=== PATIENT | female | born 2000 | race Caucasian/White ===

== ENCOUNTER 2025-01-14 15:50 | Outpatient (OUT) | payer OTHER, SELFPAY ==
[2025-01-14 16:43] LABS: Hematocrit 42.6 % (36.0-48.0); Hemoglobin 14.6 g/dL (12.0-16.0); Immature Granulocytes Abs Auto 0.01 10^3/uL (0.00-0.03); Immature Granulocytes Pct Auto 0.1 % (0.0-0.5); Lymphocytes Absolute Auto 2.1 10^3/uL (1.2-3.8); Mean Corpuscular HGB Conc 34.3 g/dL (29.9-35.2); Mean Corpuscular Hemoglobin 31.9 pg (26.7-34.0); Mean Corpuscular Volume 93.0 fL (81.0-99.0); Platelet Count 264 10^3/uL (150-450); Red Blood Count 4.58 10^6/uL (4.20-5.40); White Blood Count 7.0 10^3/uL (4.0-11.0)
[2025-01-14 16:53] LABS: Alanine Aminotransferase 25 U/L (14-59); Albumin Globulin Ratio 1.2; Albumin Level 4.1 g/dL (3.4-5.0); Alkaline Phosphatase 55 U/L (46-116); Anion Gap 15.4; Aspartate Amino Transferase 23 U/L (15-37); Blood Urea Nitrogen 22.0 mg/dL (7.0-18.0); Calcium 9.4 mg/dL (8.5-10.1); Carbon Dioxide 27.9 mmol/L (21.0-32.0); Chloride 103 mmol/L (98-107); Cholesterol 179 mg/dL (<=200); Estimated GFR (African America >60 (>=60 mL/min/1.73m^2); Estimated GFR (Non-African Ame >60 (>=60 mL/min/1.73m^2); Globulin 3.3 g/dL; Glucose 98 mg/dL (74-106); HDL Cholesterol 73 mg/dL (40-60); Potassium 4.3 mmol/L (3.5-5.1); Sodium 142 mmol/L (136-145); Total Protein 7.4 g/dL (6.4-8.2); Triglycerides 73 mg/dL (<=150); VLDL CHOLESTEROL 14.6 mg/dL
== END 2025-01-14 15:51 | disposition home or self-care (01) ==
LOC: LAB 15:55
PROVIDERS: PCP Family Medicine; Visit Provider Nurse Practitioner
DX: Z79.899 Other long term (current) drug therapy (principal)
CPT/HCPCS: 36415; 80053; 80061; 85025; 86480; 86803; 87340

== ENCOUNTER 2025-03-08 12:33 | Outpatient (OUT) | payer OTHER, SELFPAY ==
--- OUTSIDE RECORDS SUMMARY | 2025-03-08 12:36 | XMS_ITS | Clinical Summary ---
Author Organization [facility] Address [address] [facility] [place] [address] Care Team Providers Care Hand Sizer Name Role Phone Saulo Holliday MD Primary Care Provider [phone] Allergies No known active allergies Medications No known medications Encounters Date Type Department Care Team Description 01/14/2025 Clinisync Result Encounter [facility] External Department Unsolicited Provider, Generic External Data 01/10/2025 1:20 PM EDT Office Visit [facility] [address] YARELIS D [address] [phone] Sarah Monaco NP Abnormal uterine bleeding (Primary Dx) 01/10/2025 Bamboo flowsheet [facility] [address] YARELIS D [facility] [address] [place] [phone] Sarah Monaco NP 01/10/2025 Travel from Last 3 Months Family History Medical History Relation Name Comments factor v Paternal Grandfather Relation Name Status Comments Paternal Grandfather Social History Tobacco Use Types Packs/Day Years Used Date Smoking Tobacco: Never Smokeless Tobacco: Never Tobacco Cessation:Counseling Given: Not Answered Alcohol Use Standard Drinks/Week Comments Yes 0 (1 standard drink = 0.6 oz pur e alcohol) AUDIT-C Answer Date Recorded Q1: How often do you have a drink containing alc ohol? Monthly or less 01/10/2025 Q2: How many drinks containi ng alcohol do you have on a typical day when you are drinking? 1 or 2 01/10/2025 Q3: How often do you have si x or more drinks on one occasion? Never 01/10/2025 PHQ-2 Answer Date Recorded Patient Health Questionnaire-2 Score 0 01/10/2025 Comments No Sex and Gender Information Value Date Recorded Sex Assigned at Female 07/11/2023 10:36 AM EST Legal Sex Female 11:31 PM EDT Gender Identity Female 07/11/2023 10:36 AM EST Sexual Orientation Straight 07/11/2023 10 :36 AM EST Last Filed Vital Signs Vital Sign Reading Time Taken Comments Blood Pressure 106/60 01/10/2025 1:16 PM EDT Pulse - - Temperature - - Respiratory Rate - - Oxygen Saturation - - Inhaled Oxygen Concentration - - Weight 42.2 kg (93 lb) 01/10/2025 1:16 PM EDT Height 160 cm (5' 3 ) 01/10/2025 1:16 PM EDT Body Mass Index 16.47 01/10/2025 1:16 PM EDT Plan of Treatment Health Maintenance Due Date Last Done Comments Influenza Vaccine (#1) 2025 Procedures Procedure Name Priority Date/Time Associated Diagnosis Comments QUANTIFERON-TB GOLD PLUS Routine 01/14/2025 4:07 PM EDT HBSAG SCREEN Routine 01/14/2025 4:07 PM EDT ALL HEPATITIS C AB Routine 01/14/2025 4: 07 PM EDT ALL LIPID PROFILE (FASTING) Routine 01/14/2025 4:07 PM EDT [facility] CMP (CMP) (FOR REMOTE [facility] USE) Routine 01/14/2025 4:07 PM EDT ALL CBC WITH AUTO DIFF Routine 01/14/2025 4:07 PM EDT from Last 3 Months Results * QUANTIFERON-TB GOLD PLUS (01/14/2025 4:07 PM EDT) QUANTIFERON INCUBATION . [facility] Comment: Incubation performed. Reference Range: . QUANTIFERON-TB GOLD PLUS Negative Negative [facility] Comment: No response to M tuberculosis antigens detected. Infection with M tuberculosis is unlikely, but high risk individuals should be considered for additional testing (ATS/IDSA/CDC Clinical Practice Guidelines, 2017). The reference range is an Antigen minus Nil result of <0.35 IU/mL. Chemiluminescence immunoassay methodology Performed at: [address] [id number] Manager Package: Gavino Melendez PhD, Phone: [phone] QUANTIFERON CRITERIA Comment . [facility] Comment: QuantiFERON-TB Gold Plus is a qualitative indirect test for M tuberculosis infection (including disease) and is intended for use in conjunction with risk assessment, radiography, and other medical and diagnostic evaluations. The QuantiFERON-TB Gold Plus result is determined by subtracting the Nil value from either TB antigen (Ag) value. The Mitogen tube serves as a control for the test. QUANTIFERON TB1 AG VALUE 0.05 . IU/mL [facility] QUANTIFERON TB2 AG VALUE 0.04 . IU/mL [facility] QUANTIFERON NIL VALUE 0.04 . IU/mL [facility] QUANTIFERON MITOGEN VALUE >10.00 . IU/mL [facility] 01/14/2025 4:07 PM EDT 01/14/2025 4:11 PM EDT Narrative [facility] - 01/16/2025 7:07 AM EDT [facility] External Data Provider LAB BLOOD ORDERAB LES Final Result Performing Organization Address [facility] de Phone Number [facility] TB * HBSAG SCREEN (01/14/2025 4:07 PM EDT) [facility] HBSAG SCREEN Negative Negative [facility] Comment: Performed at: [address] [id number] Manager Package: Gavino Melendez PhD, Phone: [phone] 01/14/2025 4:07 PM EDT 01/14/2025 4:11 PM EDT Narrative [facility] - 01/15/2025 5:08 AM EDT [facility] External Data Provider LAB BLOOD ORDERAB LES Final Result Performing Organization Address [facility] Co de Phone Number [facility] TB * (ABNORMAL) [facility] CMP (CMP) (FOR REMOTE [facility] USE) (01/14/2025 4:07 PM EDT) SODIUM 142 136 - 145 mmol/L TBH POTASSIUM 4.3 3.5 - 5.1 mmol/L [facility] CHLORIDE 103 98 - 107 mmol/L [facility] CARBON DIOXIDE 27.9 21.0 - 32.0 mmol/L [facility] ANION GAP 15.4 TBH GLUCOSE 98 74 - 106 mg/dL [facility] BLOOD UREA NITROGEN 22.0(H) 7.0 - 18.0 mg/dL [facility] CREATININE 0.89 0.55 - 1.02 mg/dL TBH TBH EGFR-AF [place] >60 >=60 mL/min/1. 73m 2 TBH TBH EGFR-NON AF [place] >60 >=60 mL/min/1. 73m 2 TBH BUN CREATININE RATIO 24.7 TBH CALCIUM 9.4 8.5 - 10.1 mg/dL [facility]H BILIRUBIN TOTAL 0.8 0.2 - 1.0 mg/dL [facility] ASPARTATE AMINO TRANSFERASE 23 15 - 37 U/L TBH ALANINE AMINOTRANSFERASE 25 14 - 59 U/L [facility] ALKALINE PHOSPHATASE 55 46 - 116 U/L [facility] TOTAL PROTEIN 7.4 6.4 - 8.2 g/dL [facility] ALBUMIN LEVEL 4.1 3.4 - 5.0 g/dL [facility] GLOBULIN 3.3 g/dL TBH ALBUMIN GLOBULIN RATIO 1.2 [facility] 01/14/2025 4:07 PM EDT 01/14/2025 4:11 PM EDT Narrative [facility] - 01/14/2025 5:02 PM EDT Generic External Data Provider [facility] F inal Result [facility]YE TB * (ABNORMAL) ALL LIPID PROFILE (FASTING) (01/14/2025 4:07 PM EDT) TRIGLYCERIDES 73 <=150 mg/dL TB[facility] CHOLESTEROL 179 <=200 mg/dL TBH HDL CHOLESTEROL 73(H) 40 - 60 mg/dL [facility] Comment: > or =60 mg/dl - LOW CARDIOVASCULAR RISK <40 mg/dl - HIGH CARDIOVASCULAR RISK LDL CHOLESTEROL CALCULATED 92.0 mg/dL TB Comment: <100 mg/dl OPTIMAL 100-129 mg/dl NEAR OR ABOVE OPTIMAL 130-159 mg/dl BORDERLINE HIGH 160-189 mg/dl HIGH >190 mg/dl VERY HIGH VLDL CHOLESTEROL 14.6 mg/dL TB CHOL HDL RATIO 2.5 TB Comment: 3.3 - 4.4 LOW RISK 4.4 - 7.1 AVERAGE RISK 7.1 - 11.0 MODERATE RISK >11.0 HIGH RISK 01/14/2025 4:07 PM EDT 01/14/2025 4:11 PM EDT [facility] - 01/14/2025 5:02 PM EDT Generic External Data Provider [facility] F inal Result Performing Organization Address [facility] de Phone Number [facility] * ALL HEPATITIS C AB (01/14/2025 4:07 PM EDT) Pathologist [facility] HCV ANTIBODY Non Reactive Non Reactive [facility] Comment: HCV antibody alone does not differentiate between previously resolved infection and active infection. Equivocal and Reactive HCV antibody results should be followed up with an HCV RNA test to support the diagnosis of active HCV infection. 01/14/2025 4:07 PM EDT 01/14/2025 4:11 PM EDT [facility] - 01/15/2025 5:08 AM EDT Generic External Data Provider [facility] F inal Result Performing Organization Address [facility] Co de Phone Number [facility] * ALL CBC WITH AUTO DIFF (01/14/2025 4:07 PM EDT) Pathologist [facility] WBC 7.0 4.0 - 11.0 10 3/uL TB TB RBC 4.58 4.20 - 5.40 10 6/uL TBH TB HGB 14.6 12.0 - 16.0 g/dL TB TB HCT 42.6 36.0 - 48.0 % TB TB MCV 93.0 81.0 - 99.0 fL TBH TBH MCH 31.9 26.7 - 34.0 pg TBH TBH MCHC 34.3 29.9 - 35.2 g/dL TBH TBH RDW 11.6 11.0 - 15.0 % TBH TBH PLT 264 150 - 450 10 3/uL TBH TBH MPV 11.2 9.5 - 13.5 fL TBH NEUTROPHILS PERCENT AUTO 58.8 43.0 - 75.0 % TBH LYMPHOCYTES PERCENT AUTO 29.5 20.5 - 60.0 % TBH MONOCYTES PERCENT AUTO 8.1 1.7 - 12.0 % TBH TBH EO % 2.4 0.9 - 7.0 % TBH BASOPHILS PERCENT AUTO 1.1 0.2 - 2.0 % TBH IMMATURE GRANULOCYTES PCT AUTO 0.1 0.0 - 0.5 % TBH NEUTROPHILS ABSOLUTE AUTO 4.1 1.4 - 6.5 10 3/uL TBH LYMPHOCYTES ABSOLUTE AUTO 2.1 1.2 - 3.8 10 3/uL TBH MONOCYTES ABSOLUTE AUTO 0.6 0.3 - 0.8 10 3/uL TBH TBH EO # 0.2 0.0 - 0.7 10 3/uL TBH BASOPHILS ABSOLUTE AUTO 0.1 0.0 - 0.1 10 3/uL TBH IMMATURE GRANULOCYTES ABS AUTO 0.01 0.00 - 0.03 10 3/uL [facility] 01/14/2025 4:07 PM EDT 01/14/2025 4:11 PM EDT Narrative [facility] - 01/14/2025 4:44 PM EDT us Generic External Data Provider [facility] F inal Result [facility] from Last 3 Months Insurance [employer] [facility] Care Teams Hand Sizer Relationship Specialty Start Date End Date Saulo Holliday MD PCP - General Family Medicine 01/10/25
[2025-03-08 12:55] LABS: Hematocrit 41.6 % (36.0-48.0); Hemoglobin 14.0 g/dL (12.0-16.0); Immature Granulocytes Abs Auto 0.00 10^3/uL (0.00-0.03); Immature Granulocytes Pct Auto 0.0 % (0.0-0.5); Lymphocytes Absolute Auto 1.7 10^3/uL (1.2-3.8); Mean Corpuscular HGB Conc 33.7 g/dL (29.9-35.2); Mean Corpuscular Hemoglobin 31.7 pg (26.7-34.0); Mean Corpuscular Volume 94.3 fL (81.0-99.0); Platelet Count 241 10^3/uL (150-450); Red Blood Count 4.41 10^6/uL (4.20-5.40); White Blood Count 5.3 10^3/uL (4.0-11.0)
[2025-03-08 13:19] LABS: Alanine Aminotransferase 28 U/L (14-59); Albumin Globulin Ratio 1.1; Albumin Level 4.3 g/dL (3.4-5.0); Alkaline Phosphatase 55 U/L (46-116); Anion Gap 12.8; Aspartate Amino Transferase 22 U/L (15-37); Blood Urea Nitrogen 18.0 mg/dL (7.0-18.0); Calcium 9.0 mg/dL (8.5-10.1); Carbon Dioxide 29.4 mmol/L (21.0-32.0); Chloride 104 mmol/L (98-107); Estimated GFR (African America >60 (>=60 mL/min/1.73m^2); Estimated GFR (Non-African Ame >60 (>=60 mL/min/1.73m^2); Globulin 3.8 g/dL; Glucose 83 mg/dL (74-106); Potassium 4.2 mmol/L (3.5-5.1); Sodium 142 mmol/L (136-145); Thyroid Stimulating Hormone 1.278 uIU/mL (0.358-3.740); Total Protein 8.1 g/dL (6.4-8.2)
[2025-03-09 08:08] LABS: FSH 8.4 mIU/mL (.)
== END 2025-03-08 12:34 | disposition home or self-care (01) ==
LOC: LAB 12:35
PROVIDERS: PCP Family Medicine; Visit Provider Family Medicine
DX: Z00.00 Encounter for general adult medical examination without abnormal findings (principal); N93.9 Abnormal uterine and vaginal bleeding, unspecified; R63.4 Abnormal weight loss
CPT/HCPCS: 36415; 80053; 82627; 82670; 83001; 83002; 83036; 84144; 84403; 84439; 84443; 85025